=== PATIENT | male | born 1985 | race Caucasian/White ===

== ENCOUNTER 2019-04-06 10:47 | Outpatient (CLI) | payer OTHER, SELFPAY ==
--- NOTE | 2019-04-06 10:39 | DI.RAD_ITS ---
SYMPTOM/DIAGNOSIS: PAIN LEFT SHOULDER: Two views. There is elevation of the left clavicle relative to the acromion suggestive of A-C joint separation. There is also widening of the coracoclavicular distance. No acute fracture is seen. The glenohumeral joint appears grossly unremarkable. The soft tissues are unremarkable. IMPRESSION: Findings suggestive of a left A-C joint separation. There are no priors for comparison.
== END 2019-04-06 11:07 ==
PROVIDERS: Visit Provider Orthopaedic Surgery
DX: S49.92XA Unspecified injury of left shoulder and upper arm, initial encounter (principal); M25.512 Pain in left shoulder; S43.102A Unspecified dislocation of left acromioclavicular joint, initial encounter
CPT/HCPCS: 73030